=== PATIENT | female | born 1995 | race Caucasian/White ===

== ENCOUNTER 2016-10-23 09:54 | Emergency (ER) | payer SELFPAY ==
[2016-10-23] MEDS ORDERED: PRENATAL-U CAPS1 CAP PO (10:22)
[2016-10-23] MEDS ORDERED: AUGMENTIN 875-1 EAC2 PO (10:25)
[2016-10-23] MEDS ORDERED: PROAIR HFA8.5 GM INH (10:25)
== END 2016-10-23 10:34 ==
LOC: EDMED 09:54
DX: O26.891 Other specified pregnancy related conditions, first trimester (principal); J01.90 Acute sinusitis, unspecified; O99.511 Diseases of the respiratory system complicating pregnancy, first trimester; J45.909 Unspecified asthma, uncomplicated; Z3A.10 10 weeks gestation of pregnancy